=== PATIENT | male | born 1950 | race Caucasian/White ===

== ENCOUNTER 2024-06-11 11:02 | Outpatient (RCR) | payer MEDICARE, SELFPAY | END 2024-06-11 23:59 | disposition home or self-care (01) | LOC: RPT 11:02 | PROVIDERS: ATTENDING PHYSICIAN Orthopaedic Surgery; FAMILY PHYSICIAN Internal Medicine | DX: Z47.89 Encounter for other orthopedic aftercare (principal); M75.122 Complete rotator cuff tear or rupture of left shoulder, not specified as traumatic; Z73.6 Limitation of activities due to disability; M25.512 Pain in left shoulder; M62.81 Muscle weakness (generalized) | CPT/HCPCS: 97010; 97110; 97140; 97162 ==

== ENCOUNTER 2024-07-09 06:56 | Outpatient (RCR) | payer MEDICARE, SELFPAY | END 2024-07-09 23:59 | disposition home or self-care (01) | LOC: RPT 06:56 | PROVIDERS: ATTENDING PHYSICIAN Orthopaedic Surgery; FAMILY PHYSICIAN Internal Medicine | DX: Z47.89 Encounter for other orthopedic aftercare (principal); M75.122 Complete rotator cuff tear or rupture of left shoulder, not specified as traumatic; Z73.6 Limitation of activities due to disability | CPT/HCPCS: 97010; 97110; 97140 ==

== ENCOUNTER 2024-08-11 11:08 | Outpatient (RCR) | payer MEDICARE, SELFPAY | END 2024-08-11 23:59 | disposition home or self-care (01) | LOC: RPT 11:08 | PROVIDERS: ATTENDING PHYSICIAN Orthopaedic Surgery; FAMILY PHYSICIAN Internal Medicine | DX: Z47.89 Encounter for other orthopedic aftercare (principal); M75.122 Complete rotator cuff tear or rupture of left shoulder, not specified as traumatic; Z73.6 Limitation of activities due to disability | CPT/HCPCS: 97010; 97110; 97140 ==

== ENCOUNTER 2024-09-10 10:57 | Outpatient (RCR) | payer MEDICARE, SELFPAY | END 2024-09-10 23:59 | disposition home or self-care (01) | LOC: RPT 10:57 | PROVIDERS: ATTENDING PHYSICIAN Orthopaedic Surgery; FAMILY PHYSICIAN Internal Medicine | DX: Z47.89 Encounter for other orthopedic aftercare (principal); M75.122 Complete rotator cuff tear or rupture of left shoulder, not specified as traumatic; Z73.6 Limitation of activities due to disability | CPT/HCPCS: 97010; 97110 ==

== ENCOUNTER 2024-10-01 11:18 | Outpatient (RCR) | payer MEDICARE, SELFPAY | END 2024-10-01 13:57 | disposition home or self-care (01) | LOC: RPT 11:18 | PROVIDERS: ATTENDING PHYSICIAN Orthopaedic Surgery; FAMILY PHYSICIAN Internal Medicine | DX: Z47.89 Encounter for other orthopedic aftercare (principal); M75.122 Complete rotator cuff tear or rupture of left shoulder, not specified as traumatic; Z98.890 Other specified postprocedural states; Z73.6 Limitation of activities due to disability | CPT/HCPCS: 97010; 97110 ==

== ENCOUNTER 2025-01-01 06:20 | Day surgery (SDC) | payer MEDICARE, SELFPAY ==
[2024-12-18 11:53] VITALS: BMI 26.8
[2025-01-01] VITALS (11 sets, daily range): BP systolic 110–121; BP diastolic 74–91; BMI 26.8
--- NOTE | 2025-01-01 07:08 | W.SUR.PREOP ---
Pre-Operative Surgical Note
-
I have examined this patient prior to the performance of the scheduled procedure.
The patient's condition is unchanged from the time of the current History and
Physical and the patient is able to undergo the scheduled procedure.
[2025-01-01] MEDS: NORMOSOL-R/PLASMALYTE-A 1000 IV (08:22)
[2025-01-01] MEDS: TYLENOL 1000 MG PO (08:22)
--- NOTE | 2025-01-01 11:12 | W.IMMPOSTOP ---
Surgical Immed Post Op Note
-
Primary Surgeon: Godwin Hickey MD
Assisting Surgeon: None
Pre-op Diagnosis: Right inguinal hernia, umbilical hernia
Post-op Diagnosis: Same
Procedure Performed:
1. Robotic right inguinal hernia repair with mesh.
2. Primary open umbilical hernia repair
Anesthesia Type: General
Specimen / Cultures: None
Estimated Blood Loss: 3 cc
Complications: None
Operative Findings: 2 cm umbilical hernia defect, this was closed with 3 [id number] 0 Surgilon sutures. Large indirect inguinal defects. No femoral or direct components. Medium size cord lipoma reduced and resected. After achieving the
critical view of the MPO, the space was reinforced with an extra-large 3D max Bard mid weight uncoated polypropylene mesh.
--- NOTE | 2025-01-01 11:14 | OR.RPT ---
Operative Report
Operative Report
Patient Name: Donta Kelley
: 04/02/2019
Date of Operation: 01/01/2025
Preoperative Diagnosis: Right inguinal hernia, umbilical hernia
Postoperative Diagnosis: Same
Procedure(s):
1. Robotic right inguinal Hernia Repair with mesh, (MAU approach)
2. Open primary umbilical hernia repair
Surgeon(s):
Dr. Hickey
Tester Rocket Engine(s):
OANH Acosta
Anesthesia: General
Estimated Blood Loss: 3 cc
Urine Output: None
Drains/Lines/Implants: XLarge 3D Max Bard mid weight uncoated polypropylene mesh
Specimens: None
Indication for surgery: The patient has a history of groin pain and noted on exam to have an umbilical as well as a right inguinal Hernia(s). Following review of therapeutic options they have elected to undergo a minimally invasive repair.
Operative Findings: 2 cm umbilical hernia defect, this was closed with 3 [id number] 0 Surgilon sutures. Large indirect inguinal defects. No femoral or direct components. Medium size cord lipoma reduced and resected. After achieving the
critical view of the MPO, the space was reinforced with an extra-large 3D max Bard mid weight uncoated polypropylene mesh.
Details of the operation:
The patient was brought to the Operating Room and placed in the supine position with the arms tucked. IV antibiotics were infused and Venodyne stockings placed. Following uneventful induction of general endotracheal anesthesia, an orogastric tube
was placed. The abdomen was prepped and draped in the usual sterile fashion. We began by isolating the umbilical hernia via an infraumbilical incision and dissecting the hernia circumferentially around the stalk. The hernia sac was then carefully
dissected off of the stalk and used to gain access to the the abdomen. Pneumoperitoneum to 12 mmHg was obtained without difficulty with an 8 mm trocar. We then confirmed that no inadvertent injury was made while passing the trocar or Veress needle.
We then placed two additional 8 mm ports in the left upper and right upper quadrants. We then docked the robot with a Prograsper in the left hand port and monopolar scissors in the right. A large right indirect inguinal hernia was immediately
noted. There was no defect on the left. We then began by creating a flap at the level of the ASIS laterally working our way medially to the medial umbilical fold. Staying onto the peritoneum we were able to circumferentially dissect around the
hernia sac and and peel it off of the underlying spermatic cord and testicular vessels, taking care to preserve them. Medially we identified the midline pubis as well as Tyrese's ligament and ensured to dissect 2 cm below the pubic rim over the
bladder. After exposure of the entire myopectineal orifice we identified and reduced: A large sized indirect inguinal hernia, no direct inguinal hernia, no femoral hernia, a medium cord lipoma, which was removed
We then fixated an Xlarge 3D max mesh with a 2-0 Vicryl stitch at coopers medially and superior laterally. The flap was then closed with a running 2-0 barbed monocryl suture ensuring that the tail was cut flush with the medial fat pad so that no
barbs were exposed. During the closure of the flap an Angiocath was inserted and 10 cc of quarter percent Marcaine was instilled. The area in the flap cavity was then evacuated of air confirming that the mesh was flush and there were no folds. A
small rent in the peritoneum was noted and closed with 2-0 Vicryl. All needles and instruments were then removed and the robot was undocked. The abdomen was then desufflated, and pneumoperitoneum evacuated. We then turned our attention to the
umbilical hernia. The fascial edges were identified and the defect was closed with 3 [id number] 0 Surgilon sutures. The umbilical stalk was then imbricated down using an interrupted 2-0 Vicryl suture. All skin sites were then closed with 4-0
Monocryl followed by Dermabond. After allowing the Dermabond to dry, a folded up 4 x 4 gauze sponge was inserted into the umbilicus and a Tegaderm dressing was placed on top and using needle suction dressing was formed. Counts were correct and
overall, the patient tolerated the procedure well and was taken to the Recovery Room postoperatively in stable condition.
I was the attending physician and performed the procedure with assistance of the PA above. The assistance of OANH Acosta was required due to the complexity of the procedure. During the procedure Ana Lilia assisted with port placement, instrument
and needle exchanges, and closure of the wound. I was present for all portions of the case.
Godwin Hickey MD
== END 2025-01-01 15:00 | disposition home or self-care (01) ==
LOC: SDS 06:20
PROVIDERS: ATTENDING PHYSICIAN Surgery; FAMILY PHYSICIAN Internal Medicine
DX: K40.90 Unilateral inguinal hernia, without obstruction or gangrene, not specified as recurrent (principal); K42.9 Umbilical hernia without obstruction or gangrene
CPT/HCPCS: 49650; 49591; 36415; 93005; C1781

== ENCOUNTER 2025-02-09 08:49 | Outpatient (RCR) | payer MEDICARE, SELFPAY | END 2025-02-09 23:59 | disposition home or self-care (01) | LOC: RPT 08:49 | PROVIDERS: ATTENDING PHYSICIAN Orthopaedic Surgery; FAMILY PHYSICIAN Internal Medicine | DX: Z47.1 Aftercare following joint replacement surgery (principal); Z73.6 Limitation of activities due to disability; R26.89 Other abnormalities of gait and mobility; M25.561 Pain in right knee; Z96.651 Presence of right artificial knee joint | CPT/HCPCS: 97110; 97116; 97162 ==

== ENCOUNTER 2025-03-11 07:00 | Outpatient (RCR) | payer MEDICARE, SELFPAY | END 2025-03-11 23:59 | disposition home or self-care (01) | LOC: RPT 07:00 | PROVIDERS: ATTENDING PHYSICIAN Orthopaedic Surgery; FAMILY PHYSICIAN Internal Medicine | DX: Z47.1 Aftercare following joint replacement surgery (principal); Z73.6 Limitation of activities due to disability; R26.89 Other abnormalities of gait and mobility; M25.561 Pain in right knee; Z96.651 Presence of right artificial knee joint | CPT/HCPCS: 97010; 97110 ==

== ENCOUNTER 2025-04-08 08:54 | Outpatient (RCR) | payer MEDICARE, SELFPAY | END 2025-04-09 12:02 | disposition home or self-care (01) | LOC: RPT 08:54 | PROVIDERS: ATTENDING PHYSICIAN Orthopaedic Surgery; FAMILY PHYSICIAN Internal Medicine | DX: Z47.1 Aftercare following joint replacement surgery (principal); Z73.6 Limitation of activities due to disability; R26.89 Other abnormalities of gait and mobility; M25.561 Pain in right knee; Z96.651 Presence of right artificial knee joint | CPT/HCPCS: 97010; 97110; 97112 ==